=== PATIENT | male | born 1995 | race Caucasian/White ===

== ENCOUNTER 2018-10-17 11:24 | Emergency (ER) | payer SELFPAY ==
[2018-10-17] MEDS ORDERED: DEXAMETHASONE 10 MG/ML VIAL IVP ONE (12:10)
[2018-10-17] MEDS ORDERED: METOCLOPRAMIDE 10 MG/2 ML VIAL IVP ONE (12:10)
[2018-10-17] MEDS ORDERED: NS 1,000 ML IV ONE (12:10)
[2018-10-17] MEDS ORDERED: KETOROLAC 30 MG/1 ML SDV IVP ONE (12:10)
--- NOTE | 2018-10-17 12:10 | EDPHY ---
H & P Stated Complaint: Dizzy/Left sided numbness Time Seen by Provider: 10/17/18 12:02 HPI/ROS: HPI: This is a 23-year-old male who presents Chief Complaint: Migraine headache, dizziness Location: Left side of body, head Quality: Aching, dizziness, numbness Duration: Prior to arrival Signs and Symptoms: no fever, no nausea, no vomiting,+ photophobia, no noise sensitivity, no neck stiffness, no ear pain, no tinnitus, no nasal congestion, no sinus pressure, no weakness, no radiation, no aura Timing: Resolving Severity: [id number] Context: Patient presents with complaints of sudden onset of left foot numbness that radiated up into his left leg and then started into his left hand and then moved up to hit the left side of his face. He reports that he started to breathe rapidly and become warm. He then developed a by temporal headache that is consistent with his prior migraine headaches. He reports that he has photophobia and nausea. 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 He does not have a primary care provider. Denies fever, thunderclap symptoms, worse headache of life. Does report some visual blurriness that is bilateral that is typical of his prior migraine headaches. He reports that his migraine headaches are usually induced by lack of sleep and stress. Denies recent upper respiratory symptoms. Patient drank water today and had only eggs for breakfast. Modifying Factors: None Comment: ROS: A comprehensive 10 system review of systems is otherwise negative aside from elements mentioned in the history of present illness. MEDICAL/SURGICAL/SOCIAL HISTORY: Medical history: Generally healthy. Does not take any regular medications. Surgical history: Denies Social history: Recently moved from [place]. Employed as a reeves. Family history noncontributory. CONSTITUTIONAL: Obese, young adult white female, awake and alert, no obvious distress HEENT: Atraumatic and normocephalic, PERRL, EOMI. Nares patent; no rhinorrhea; no nasal mucosal edema. Tympanic membranes clear. Oropharynx clear, no exudate and moist pink mucosa. Airway patent. No lymphadenopathy. No meningismus. No carotid bruits. Cardiovascular: Normal S1/S2, regular rate, regular rhythm, without murmur rub or gallop. PULMONARY/CHEST: Symmetrical and nontender. Clear to auscultation bilaterally. Good air movement. No accessory muscle usage. ABDOMEN: Soft, nondistended, nontender, no rebound, no guarding, no peritoneal signs, no masses or organomegaly. No CVAT. EXTREMITIES: 2/2 pulses, strength 5/5, no deformities, no clubbing, no cyanosis or edema. NEUROLOGICAL: no focal neuro deficits. GCS 15. Cranial nerves 2-12 grossly intact. Speech is normal. Normal Romberg testing. Normal [id number] testing. Normal [id number] testing. SKIN: Warm and dry, no erythema. no rash. Good capillary refill. Source: Patient Exam Limitations: No limitations - Personal History Current Tetanus/Diphtheria Vaccine: Yes - Medical/Surgical History Hx Asthma: No Hx Chronic Respiratory Disease: No Hx Diabetes: No Hx Cardiac Disease: No Hx Renal Disease: No Hx Cirrhosis: No Hx Alcoholism: No Other PMH: Migraines, - Social History Smoking Status: Never smoked Constitutional: Initial Vital Signs Temperature (C) 37.2 C 10/17/18 11:32 Heart Rate 102 H 10/17/18 11:32 Respiratory Rate 18 10/17/18 11:32 Blood Pressure 144/91 H 10/17/18 11:32 O2 Sat (%) 94 10/17/18 11:32 O2 Delivery Mode Room Air Allergies/Adverse Reactions: No Known Allergies Allergy (Unverified 10/17/18 11:35) Home Medications: Medication Instructions Recorded NK [No Known Home Meds] 10/17/18 Medical Decision Making ED Course/Re-evaluation: Vital signs reviewed and show mild tachycardia. IV access, laboratory studies ordered No neurological deficits to warrant imaging of the brain. NIHSS=0 Suspect this is anxiety response versus migraine headache Given 1 L normal saline, IV Toradol, IV Decadron, IV Reglan, IV Benadryl 1330: Reassessed patient reports moderate relief of symptoms. resolution of headache. Given referral to [facility] and work excuse provided. This patient was seen under the supervision of my secondary supervising physician. I evaluated care for this patient with attending. Differential Diagnosis: Dizziness including but not limited to peripheral and central causes of vertigo , orthostatic causes including dehydration, and blood loss. Headache including but not limited to subarachnoid hemorrhage, migraine headache , tension headache and infectious causes such as meningitis, pharyngitis and sinusitis. - Data Points Laboratory Results: Laboratory Results 10/17/18 12:14 04 12:14 10/17/18 10/17/18 12:14 12:14 WBC 5.82 10^3/uL 10^3/uL (3.80-9.50) RBC 5.40 10^6/uL 10^6/uL (4.40-6.38) Hgb 15.9 g/dL g/dL (13.7-17.5) Hct 45.9 % % (40.0-51.0) MCV 85.0 fL fL (81.5-99.8) MCH 29.4 pg pg (27.9-34.1) MCHC 34.6 g/dL g/dL (32.4-36.7) RDW 12.2 % % (11.5-15.2) Plt Count 241 10^3/uL 10^3/uL (150-400) MPV 10.4 fL fL (8.7-11.7) Neut % (Auto) 69.7 % % (39.3-74.2) Lymph % (Auto) 23.5 % % (15.0-45.0) [place] % (Auto) 6.2 % % (4.5-13.0) Eos % (Auto) 0.2 % L % (0.6-7.6) Baso % (Auto) 0.2 % L % (0.3-1.7) Nucleat RBC Rel Count 0.0 % % (0.0-0.2) Absolute Neuts (auto) 4.06 10^3/uL 10^3/uL (1.70-6.50) Absolute Lymphs (auto) 1.37 10^3/uL 10^3/uL (1.00-3.00) Absolute Monos (auto) 0.36 10^3/uL 10^3/uL (0.30-0.80) Absolute Eos (auto) 0.01 10^3/uL L 10^3/uL (0.03-0.40) Absolute Basos (auto) 0.01 10^3/uL L 10^3/uL (0.02-0.10) Absolute Nucleated RBC 0.00 10^3/uL 10^3/uL (0-0.01) Immature Gran % 0.2 % % (0.0-1.1) Immature Gran # 0.01 10^3/uL 10^3/uL (0.00-0.10) Sodium 139 mEq/L mEq/L (135-145) Potassium 4.3 mEq/L mEq/L (3.5-5.2) Chloride 103 mEq/L mEq/L (97-110) Carbon Dioxide 26 mEq/l mEq/l (22-31) Anion Gap 10 mEq/L mEq/L (6-14) BUN 17 mg/dL mg/dL (7-23) Creatinine 0.8 mg/dL mg/dL (0.7-1.3) Estimated GFR > 60 Glucose 89 mg/dL mg/dL (70-100) Calcium 9.7 mg/dL mg/dL (8.5-10.4) Magnesium 1.7 mg/dL mg/dL (1.6-2.3) Total Bilirubin 0.4 mg/dL mg/dL (0.1-1.4) Conjugated Bilirubin 0.1 mg/dL mg/dL (0.0-0.5) Unconjugated Bilirubin 0.3 mg/dL mg/dL (0.0-1.1) AST 23 IU/L IU/L (17-59) ALT 53 IU/L IU/L (21-72) Alkaline Phosphatase 73 IU/L IU/L (38-126) Total Protein 7.9 g/dL g/dL (6.3-8.2) Albumin 4.8 g/dL g/dL (3.5-5.0) Medications Given: Discontinued Medications Dexamethasone (Decadron Injection) 10 mg IVP EDNOW ONE Stop: 10/17/18 12:11 Last Admin: 10/17/18 12:52 Dose: 10 mg Diphenhydramine HCl (Benadryl Injection) 25 mg IVP EDNOW ONE Stop: 10/17/18 12:11 Last Admin: 10/17/18 12:52 Dose: 25 mg Sodium Chloride (Ns) 1,000 mls @ 0 mls/hr IV ONCE ONE; Wide Open PRN Reason: Protocol Stop: 10/17/18 12:11 Last Admin: 10/17/18 12:48 Dose: 1,000 mls Ketorolac Tromethamine (Toradol) 30 mg IVP EDNOW ONE Stop: 10/17/18 12:11 Last Admin: 10/17/18 12:52 Dose: 30 mg Metoclopramide HCl (Reglan Injection) 10 mg IVP EDNOW ONE Stop: 10/17/18 12:11 Last Admin: 10/17/18 12:52 Dose: 10 mg Departure - Departure Disposition: Home, Routine, Self-Care Clinical Impression: Stress response, History of migraine headaches Condition: Good Instructions: Migraine Headache (ED), Stress (ED) Additional Instructions: Rest as much as possible until you are feeling better. Consume a minimum of 8-10 glasses of water or electrolyte fluid replacement drinks that include Gatorade, Powerade, Pedialyte. Call [facility] to establish primary care. Referrals: [facility],. [Clinic] - As per Instructions Stand Alone Forms: Work Excuse
[2018-10-17 12:26] LABS: PLATELET COUNT 241 10^3/uL (150-400)
[2018-10-17 13:43] VITALS: BP 126/83
== END 2018-10-17 13:50 | disposition home or self-care (01) ==
DX: F43.9 Reaction to severe stress, unspecified (principal); G43.909 Migraine, unspecified, not intractable, without status migrainosus; E86.9 Volume depletion, unspecified
CPT/HCPCS: 96374; J1100; J1200; J1885; J2765